=== PATIENT | female | born 1985 | race Two or more races ===

== ENCOUNTER 2018-01-02 04:17 | Emergency (ER) | payer OTHER ==
[2018-01-02] MEDS ORDERED: FLUORESCEIN SODIUM 1 MG STRIP OP ONE ×2 (04:26→04:36)
[2018-01-02] MEDS ORDERED: PROPARACAINE 0.5% 15 ML OPHT DROP OP ONE (04:26)
[2018-01-02 04:27] VITALS: BP 121/83; PULSE 72; RESP 18; TEMP 98.1; O2SAT 97
[2018-01-02] MEDS ORDERED: PROPARACAINE 0.5% 15 ML OPHT DROP ONE (04:36)
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
== END 2018-01-02 04:48 | disposition home or self-care (01) ==
DX: S05.02XA Injury of conjunctiva and corneal abrasion without foreign body, left eye, initial encounter (principal); W22.8XXA Striking against or struck by other objects, initial encounter; Y99.8 Other external cause status

== ENCOUNTER 2019-05-03 19:33 | Emergency (ER) | payer OTHER | END 2019-05-03 22:40 | disposition home or self-care (01) ==